=== PATIENT | male | born 1990 | race American Indian/Alaskan Native ===

== ENCOUNTER 2017-11-29 23:24 | Emergency (ER) | payer OTHER ==
[2017-11-29 23:32] VITALS: BMI 23.1
[2017-11-29 23:33] VITALS: TEMP 98.7
[2017-11-29] MEDS ORDERED: Naloxone 0.4 mg/ml Inj (Adult) SC STA (23:41)
--- NOTE | 2017-11-29 23:45 | ED PDOC ---
Arrival/HPI - General Time Seen by Provider: 11/29/17 23:35 Historian: EMS - History of Present Illness Narrative History of Present Illness (Text): 11/29/17 23:41 A 27 year old male, with no significant past medical history, is brought into the emergency department via EMS after being found sleeping outside of a convenient store this evening. Patient was arousable. The patient denies fevers , chills, headache, dizziness, sore throat, cough, chest pain, shortness of breath, dyspnea on exertion, abdominal pain, nausea, vomiting, diarrhea, neck/ back pain, urinary/bowel changes or any other complaint. Time/Duration: Prior to Arrival Symptom Onset: Sudden Symptom Course: Unchanged Activities at Onset: Rest, Light Context: Street Past Medical History - Provider Review Nursing Documentation Reviewed: Yes Family/Social History - Physician Review Nursing Documentation Reviewed: Yes Family/Social History: No Known Family HX Allergies/Home Meds Allergies/Adverse Reactions: Allergies No Known Allergies Allergy (Verified 11/29/17 23:32) Home Medications: Home Meds Medication Instructions Recorded Confirmed Unobtainable 11/29/17 11/29/17 Review of Systems - Physician Review All systems were reviewed & negative as marked: Yes - Review of Systems Constitutional: absent: Fevers ENT: absent: Sore Throat Respiratory: absent: SOB, Cough Cardiovascular: absent: Chest Pain, CHOU Gastrointestinal: absent: Abdominal Pain, Stool Changes, Diarrhea, Nausea, Vomiting Genitourinary Male: absent: Urinary Output Changes Musculoskeletal: absent: Back Pain, Neck Pain Neurological: absent: Headache, Dizziness Physical Exam Vital Signs Reviewed: Yes Vital Signs Temp Pulse Resp BP Pulse Ox 11/30/17 04:44 61 18 127/66 99 11/30/17 02:19 60 18 122/63 100 11/29/17 23:32 98.7 F 78 18 129/69 100 Temperature: Afebrile Blood Pressure: Normal Pulse: Regular Respiratory Rate: Normal Appearance: Positive for: Well-Appearing, Comfortable Pain Distress: None Mental Status: Positive for: Alert and Oriented X 3 - Systems Exam Head: Present: Atraumatic, Normocephalic Pupils: Present: PERRL Extroacular Muscles: Present: EOMI Conjunctiva: Present: Normal Mouth: Present: Moist Mucous Membranes Neck: Present: Normal Range of Motion Respiratory/Chest: Present: Clear to Auscultation, Good Air Exchange. No: Respiratory Distress, Accessory Muscle Use Cardiovascular: Present: Regular Rate and Rhythm, Normal S1, S2. No: Murmurs Abdomen: No: Tenderness, Distention, Peritoneal Signs Back: Present: Normal Inspection Upper Extremity: Present: Normal Inspection. No: Cyanosis, Edema Lower Extremity: Present: Normal Inspection. No: Edema Neurological: Present: GCS=15, CN II-XII Intact, Speech Normal Skin: Present: Warm, Dry, Normal Color. No: Rashes Psychiatric: Present: Alert, Oriented x 3, Normal Insight, Normal Concentration Medical Decision Making ED Course and Treatment: 11/29/17 23:44 Impression: A 27 year old male brought into the emergency department by EMS after being found asleep in front of a convenience store. Plan: -- Narcan -- Reassess and disposition Prior Visits: Notes and results from previous visits were reviewed. Progress Notes: - Medication Orders Current Medication Orders: Discontinued Medications Naloxone HCl (Narcan) 0.4 mg SC STAT STA Stop: 11/29/17 23:42 Last Admin: 11/29/17 23:43 Dose: 0.4 mg Subcutaneous Administrations Document 11/29/17 23:43 RD (Rec: 11/29/17 23:43 RD [id number]) Injection Site MAR Injection Site Umbilicus Charges for Administration # of Subcutaneous Administrations 1 - Scribe Statement The provider has reviewed the documentation as recorded by the Scribe Marie Eckert Provider Scribe Attestation: All medical record entries made by the Scribe were at my direction and personally dictated by me. I have reviewed the chart and agree that the record accurately reflects my personal performance of the history, physical exam, medical decision making, and the department course for this patient. I have also personally directed, reviewed, and agree with the discharge instructions and disposition. Disposition/Present on Arrival - Present on Arrival Any Indicators Present on Arrival: No - Disposition Have Diagnosis and Disposition been Completed?: Yes Diagnosis: Alcohol abuse Disposition: HOME/ ROUTINE Disposition Time: 05:54 Condition: GOOD Discharge Instructions (ExitCare): Alcohol Abuse and Alcoholism (DC)
[2017-11-30 06:31] VITALS: BP 120/65; PULSE 63; RESP 17; O2SAT 100
== END 2017-11-30 06:18 | disposition home or self-care (01) ==
LOC: ED 23:24 → MERGE 23:24 → ED 11-30 06:18
DX: F10.10 Alcohol abuse, uncomplicated (principal)
CPT/HCPCS: 96372; 99284; J2310